=== PATIENT | female | born 1985 | race Caucasian/White ===

== ENCOUNTER 2016-08-01 12:22 | Emergency (ER) | payer MEDICAID ==
[2016-08-01 12:23] VITALS: BMI 26.6
[2016-08-01 12:35] VITALS: BP 127/90; PULSE 96; RESP 18; TEMP 97.9; O2SAT 98
--- NOTE | 2016-08-01 14:05 | C.PDOC ---
History Of Present Illness 30 yr old female presents to the ER with complaints of URI symptoms, associated with body aches, mild headache, nasal congestion and dry cough for the past 10 days. Patient reports yesterday she developed sore throat and throat swelling. Patient denies high fever, chills, drooling, dysphagia, dyspnea, neck pain, chest pain, SOB, nausea, vomiting, abdominal pain, UTI sx. AMbulate to ED for evaluation, not in any apparent distress. Time Seen by Provider: 08/01/16 12:59 Chief Complaint (Nursing): Flu-like Symptoms History Per: Patient History/Exam Limitations: no limitations Onset/Duration Of Symptoms: Days (10) Sick Contacts (Context): None Recent travel outside of the [place]: No Past Medical History Reviewed: Historical Data, Nursing Documentation, Vital Signs Vital Signs: Last Vital Signs Temp 97.9 F 08/01/16 12:30 Pulse 96 H 08/01/16 12:30 Resp 18 08/01/16 12:30 BP 127/90 08/01/16 12:30 Pulse Ox 98 08/01/16 14:09 - Medical History PMH: Sleep Apnea (NEWLY DX.-NEEDS F/U-NO MASK AT PRESENT(DATE 03/27/16)) - [facility] Procedures ARTIF RUPT MEMBRANES NEC (05/26/14) EPISIOTOMY (05/26/14) MONITORING NOS (03/11/14) INFLUENZA VACCINATION (05/26/14) Family History: States: No Known Family Hx - Social History Hx Alcohol Use: No Hx Substance Use: No Review Of Systems Except As Marked, All Systems Reviewed And Found Negative. Constitutional: Positive for: Other ((+) Body aches). Negative for: Fever, Chills ENT: Positive for: Nose Congestion, Throat Pain, Throat Swelling Cardiovascular: Negative for: Chest Pain Respiratory: Positive for: Cough (Dry). Negative for: Shortness of Breath Gastrointestinal: Negative for: Nausea, Vomiting, Abdominal Pain, Diarrhea Neurological: Positive for: Headache (Mild). Negative for: Weakness, Numbness Physical Exam - Physical Exam Appears: Well, Non-toxic, No Acute Distress Skin: Warm, Dry, No Rash Head: Normacephalic Eye(s): bilateral: Normal Inspection Ear(s): Bilateral: Normal Nose: Other ((+) Bilateral nasal congestion. ) Oral Mucosa: Moist, No Drooling, Other (no oral lesions.) Tongue: Normal Appearing Lips: Normal Appearing Throat: Erythema (Bilateral pharangeal erythema edema), No Exudate, No Drooling , Other (uvula midline, no edema) Neck: Normal, Normal ROM, Supple Lymphatic: Adenopathy (Bilateral submandipular adenopathy) Chest: Symmetrical, No Tenderness Cardiovascular: Rhythm Regular, No Murmur Respiratory: Normal Breath Sounds, No Rales, No Rhonchi, No Stridor, No Wheezing Gastrointestinal/Abdominal: Normal Exam, Soft, No Tenderness, No Guarding, No Rebound Back: Normal Inspection, No CVA Tenderness Extremity: Normal ROM, No Pedal Edema, No Deformity, No Swelling Neurological/Psych: Oriented x3, Normal Speech, Normal Motor, Normal Sensation, Normal Reflexes ED Course And Treatment O2 Sat by Pulse Oximetry: 98 Pulse Ox Interpretation: Normal Progress Note: on re-evaluation, pt reports mild improvemnet in pain. Afebrile , hemodynamicaly stable. Non-toxic. PulseOx 98% RA. neck: (-) meningeal sign. ENT: (+) exam c/w acute pharyngitis r/o tonsillitis. uvula midline, no edema. Lungs: CTA B/L, BS equal B/L. CVS: (+)S1S2, reg. Abd: benign. back: ( -) CVA tenderness. neurologicaly intact. UA results review and appears c/w UTI. pt advised and ref. to F/u with PMD in 1-2 days for re-eavl. return if any new changes. Medical Decision Making Medical Decision Making: PLAN: * CXR * HCG Urine * Urinalysis * Tramadol PO Disposition Counseled Patient/Family Regarding: Studies Performed, Diagnosis, Need For Followup, Rx Given - Disposition Referrals: Juanjo Bess MD [Staff Provider] - Disposition: HOME/ ROUTINE Disposition Time: 14:10 Condition: STABLE Additional Instructions: Take medication as prescribed Encourage fluids Follow up with PMD in 2-3 days for re-evaluation. Return to ED if any worsening or new changes. Prescriptions: Ciprofloxacin [Cipro] 1 tab PO BID #14 tab Instructions: Pharyngitis (ED), Urinary Tract Infection in Women (ED) Print Language: KAZAKH - Clinical Impression Clinical Impression: Pharyngitis, UTI (urinary tract infection) - PA / METEOROLOGIST LIAISON / Resident Statement MD/DO has reviewed & agrees with the documentation as recorded. - Scribe Statement The provider has reviewed the documentation as recorded by the Scribe Kala Hernandez All medical record entries made by the Rockyibe were at my direction and personally dictated by me. I have reviewed the chart and agree that the record accurately reflects my personal performance of the history, physical exam, medical decision making, and the department course for this patient. I have also personally directed, reviewed, and agree with the discharge instructions and disposition.
[2016-08-01 14:32] LABS: RBC URINE 22 /hpf (0-3); URINE BILIRUBIN NEGATIVE (NEGATIVE); URINE BLOOD 3+ (NEGATIVE); URINE COLOR Yellow (YELLOW); URINE GLUCOSE (UA) NORMAL (Normal); URINE KETONE NEGATIVE (NEGATIVE); URINE LEUKOCYTE ESTERASE 1+ Leu/uL (Negative); URINE PROTEIN NEGATIVE (NEGATIVE); URINE UROBILINOGEN NORMAL mg/dL (0.2-1.0); WBC URINE 13 /hpf (0-5)
--- NOTE | 2016-08-01 14:59 | RAD ---
HISTORY: Cough COMPARISON: None available TECHNIQUE: Chest PA and lateral FINDINGS: LUNGS: No focal consolidation. Please note that chest x-ray has limited sensitivity for the detection of pulmonary masses. PLEURA: No significant pleural effusion identified. No definite pneumothorax . CARDIOVASCULAR: The cardiomediastinal silhouette appears within normal limits of size. OSSEOUS STRUCTURES: No acute osseous abnormality identified. VISUALIZED UPPER ABDOMEN: Unremarkable. OTHER FINDINGS: None. IMPRESSION: No focal consolidation, significant pleural effusion, or definite pneumothorax identified.
== END 2016-08-01 15:19 | disposition home or self-care (01) ==
LOC: C.ER 12:22
DX: J02.9 Acute pharyngitis, unspecified (principal); N39.0 Urinary tract infection, site not specified

== ENCOUNTER 2016-11-09 09:27 | Day surgery (SDC) | payer MEDICAID ==
[2016-09-24 07:21] VITALS: BMI 26.4
[2016-11-09] MEDS ORDERED: Acetaminophen/Codeine elixir 120-12mg/5ml PO PRN (09:37)
[2016-11-09] MEDS ORDERED: Dextrose 5%/0.45% NS 1,000 ML IV SCH (09:45)
[2016-11-09] MEDS ORDERED: ceFAZolin IV 1 gm in Dextrose 1 GM/50 ML BAG IVPB ONE (11:08)
[2016-11-09] MEDS ORDERED: Lactated Ringer's 500 ML IV ONE (11:10)
[2016-11-09] MEDS ORDERED: Propofol 10 mg/ml Inj (20 ML) ONE ×2 (11:15→11:16)
[2016-11-09] MEDS ORDERED: HYDROmorphone 0.5 mg/0.5 ml ISec IVP PRN (11:53)
[2016-11-09 12:04] VITALS: O2SAT 100
[2016-11-09] MEDS ORDERED: HYDROmorphone 0.5 mg/0.5 ml ISec ONE (12:09)
[2016-11-09 12:55] VITALS: RESP 15; TEMP 97.6
[2016-11-09 15:12] VITALS: BP 119/69; PULSE 73
--- NOTE | 2016-11-23 12:54 | PCM.OP ---
Operative Report - Operative Report Date of Surgery/Procedure: 11/09/16 Surgeon: Dr. Jude Bueno Anesthesia/Sedation: General anesthesia Pre-Operative Diagnosis: Chronic tonsillitis Post-Operative Diagnosis: Chronic tonsillitis Indication for Surgery: Chronically infected tonsills Operative Findings: Right tonsil was wrapped toward medially, incision was made , then insert the tonsillar plate using a plasma. Dissections were done between tonsil and tonsillar fossa using the plasma. Frontal tonsils removed. Bleeding was controlled using the plasma. The tonsil was graft towards medially. Incision was made the extra tonsil using the plasma tonsil. The full tonsil burst below the uvula. Plasma found, no bleeding, good noted Procedure/Operation Description: Patient was brought into the room placed in a slant position and anesthesias initiated through NET tube. Patient was prepped in the usual manner. Mast site was placed in the oral cavity open suspended on the mast in usual manner. Right tonsil was wrapped toward medially, incision was made, then insert the tonsillar plate using a plasma. Dissections were done between tonsil and tonsillar fossa using the plasma. Frontal tonsils removed. Bleeding was controlled using the plasma. The tonsil was graft towards medially. Incision was made the extra tonsil using the plasma tonsil. The full tonsil burst below the uvula. Plasma found, no bleeding, good noted. My (?) will sat down for 30 seconds with my help, no bleeding was noted. Masec(?) was taken out and removed. The patient was taken off of anesthesia and taken to the recovery room in a civil manner Complications: None
--- NOTE | 2016-12-03 08:56 | OP ---
PROCEDURE DATE: 11/09/2016 PREOPERATIVE DIAGNOSIS: Chronic tonsillitis. POSTOPERATIVE DIAGNOSIS: Chronic tonsillitis. PROCEDURE: Tonsillectomy. SIGNIFICANT FINDINGS: *------*Infected tonsils. DESCRIPTION OF PROCEDURE: The patient was brought to the operating room and placed in the supine position. Anesthesia was initiated through an ET tube. The patient was draped in usual manner. A mouth gap was placed in the oral cavity, opened and suspended on the [employer] business applications analyst the usual manner. Right tonsil was grabbed and pulled medially. Incision was made in the inferior tonsillar pillar using a plasma knife. Resection was done between tonsil and tonsillar fossa using a plasma knife until the tonsil was removed. Bleeding was controlled using a plasma knife. Next, the other tonsil was grabbed and pulled medially. Incision was made in the inferior tonsillar pillar using a plasma knife. Resection was done between tonsil and tonsillar fossa using a plasma knife until the tonsil was removed. Bleeding was controlled using a plasma knife. Both tonsils *------* plasma knife. No bleeding was noted. Mouth gag was let down for 30 seconds without cuff. No bleeding was noted. The mouth gag was taken out and removed. The patient was taken off anesthesia and taken to recovery room in stable manner. Jude Bueno MD Job # [id number]
== END 2016-11-09 15:00 | disposition home or self-care (01) ==
LOC: C.SDS 09:27
PROVIDERS: ATTEND Otolaryngology
DX: J35.01 Chronic tonsillitis (principal); Z98.890 Other specified postprocedural states; Z79.899 Other long term (current) drug therapy

== ENCOUNTER 2016-11-14 10:35 | Emergency (ER) | payer MEDICAID ==
[2016-11-14 10:36] VITALS: BMI 26.4
[2016-11-14 10:45] VITALS: RESP 18; TEMP 97.7; O2SAT 99
[2016-11-14] MEDS ORDERED: Sodium Chloride 0.9% 1,000 ML IV ONE (11:56)
[2016-11-14] MEDS ORDERED: Acetaminophen/Codeine elixir 120-12mg/5ml PO STA (11:56)
--- NOTE | 2016-11-14 12:03 | C.PDOC ---
History Of Present Illness 31 y/o female, history of sleep apnea, presents to ED sp tonsillectomy/T&A, presents to ED with c/o severe sore throat. Patient notes no relief with Tylenol given after surgery. Also reports 1 episode of vomiting yesterday and associated dizziness. Denies fever, chills, abdominal pain. Describes throat pain 02/19, non-radiating. Time Seen by Provider: 11/14/16 11:41 Chief Complaint (Nursing): ENT Problem History Per: Patient History/Exam Limitations: no limitations Onset/Duration Of Symptoms: Days Current Symptoms Are (Timing): Worse Location Of Pain: Throat Associated Symptoms: Sore Throat, Vomiting. denies: Fever, Chills, Cough, Neck Pain, Diarrhea Ear Symptoms: Bilateral: None Recent travel outside of the [place]: No Past Medical History Reviewed: Historical Data, Nursing Documentation, Vital Signs Vital Signs: Last Vital Signs Temp 97.7 F 11/14/16 10:40 Pulse 93 H 11/14/16 10:40 Resp 18 11/14/16 10:40 BP 127/90 11/14/16 10:40 Pulse Ox 99 11/14/16 14:52 - Medical History PMH: Sleep Apnea (NEWLY DX.-NEEDS F/U-NO MASK AT PRESENT(DATE 03/27/16)) Surgical History: Tonsillectomy - [facility] Procedures ARTIF RUPT MEMBRANES NEC (05/26/14) EPISIOTOMY (05/26/14) MONITORING NOS (03/11/14) INFLUENZA VACCINATION (05/26/14) Family History: States: Unknown Family Hx - Social History Hx Alcohol Use: No Hx Substance Use: No - Immunization History Hx Tetanus Toxoid Vaccination: No Hx Influenza Vaccination: No Hx Pneumococcal Vaccination: No Review Of Systems Except As Marked, All Systems Reviewed And Found Negative. Constitutional: Negative for: Fever, Chills ENT: Positive for: Throat Pain Cardiovascular: Negative for: Chest Pain Respiratory: Negative for: Cough, Shortness of Breath, Wheezing Gastrointestinal: Positive for: Vomiting. Negative for: Nausea, Abdominal Pain Skin: Negative for: Rash Neurological: Positive for: Dizziness. Negative for: Headache Physical Exam - Physical Exam Appears: Non-toxic, No Acute Distress Skin: Warm, Dry Head: Atraumatic, Normacephalic Eye(s): bilateral: Normal Inspection, PERRL, EOMI Ear(s): Bilateral: Normal Nose: Normal Oral Mucosa: Moist Throat: Other (white plaque posterior pharanx c/w surgery, no bleeding, tenderness to external pharynx) Neck: Supple Chest: Symmetrical Cardiovascular: Rhythm Regular, No Murmur Respiratory: Normal Breath Sounds, No Rales, No Rhonchi, No Wheezing Gastrointestinal/Abdominal: Soft, No Tenderness, No Distention, No Guarding, No Rebound Back: Normal Inspection Extremity: Normal ROM, Capillary Refill (< 2 sec.) Neurological/Psych: Oriented x3, Normal Speech, Normal Cognition ED Course And Treatment O2 Sat by Pulse Oximetry: 99 (RA) Pulse Ox Interpretation: Normal () Disposition Counseled Patient/Family Regarding: Diagnosis, Need For Followup, Rx Given - Disposition Referrals: Jude Bueno MD [Staff Provider] - Disposition: HOME/ ROUTINE Disposition Time: 14:45 Condition: STABLE Prescriptions: Acetaminophen/Codeine [Tylenol/Codeine elixir] 5 ml PO Q6H #60 ml Forms: [facility] Connect (Belarusian), Gen Discharge Inst Fijian, [facility] (Fijian) - POA Present On Arrival: None - Clinical Impression Clinical Impression: History of surgical procedure on mouth - Scribe Statement The provider has reviewed the documentation as recorded by the Harrison Lo Provider Attestation: All medical record entries made by the Harrison were at my direction and personally dictated by me. I have reviewed the chart and agree that the record accurately reflects my personal performance of the history, physical exam, medical decision making, and the department course for this patient. I have also personally directed, reviewed, and agree with the discharge instructions and disposition.
[2016-11-14] MEDS ORDERED: Acetaminophen/Codeine elixir 120-12mg/5ml ONE (12:11)
[2016-11-14] MEDS ORDERED: Sodium Chloride 0.9% 1,000 ML ONE (12:12)
[2016-11-14 15:01] VITALS: BP 132/89; PULSE 92
== END 2016-11-14 15:01 | disposition home or self-care (01) ==
LOC: C.ER 10:35
DX: G89.18 Other acute postprocedural pain (principal); R07.0 Pain in throat
CPT/HCPCS: 96360; 99284; J7040